=== PATIENT | male | born 1950 | race Caucasian/White ===

== ENCOUNTER 2023-10-11 13:32 | Inpatient (IN) | payer OTHER ==
[2023-10-11] MEDS ORDERED: SODIUM CHLORIDE 2,585 ML IV ONE (14:25)
[2023-10-11 14:49] LABS: BASO % 0.4 % (0-2.0); EOS % 0.6 % (0-4.5); HEMATOCRIT 43.9 % (35.4-49); HEMOGLOBIN 15.5 GM/dL (11.7-16.9); LYMPH % 3.4 % (8-40); MCH 34.1 pg (25.7-33.7); MCHC 35.3 g/dl (32.0-35.9); MEAN CELL VOLUME 96.5 fl (80-96); MEAN PLT VOLUME 8.6 fl (7.5-11.1); MONO % 14.1 % (3.8-10.2); NEUT % 81.5 % (42.8-82.8); PLATELET COUNT 265 10^3/uL (134-434); RBC 4.55 M/mm3 (4.00-5.60); WHITE BLOOD COUNT 9.7 K/mm3 (4.0-10.0)
[2023-10-11 14:52] LABS: VENOUS BASE EXCESS -5.8 mmol/L (-2-2); VENOUS O2 SATURATION 70.1 % (70-80); VENOUS PCO2 30.7 mmHg (38-52); VENOUS PH 7.382 (7.310-7.410)
[2023-10-11 14:55] LABS: INR 1.24 (0.83-1.09); PROTHROMBIN TIME (PATIENT) 14.3 SEC (9.7-13.0)
[2023-10-11 14:58] LABS: ACTIVATED PTT 30.8 SECONDS (25.2-36.5)
[2023-10-11 15:08] LABS: POTASSIUM 4.2 mmol/L (3.5-5.1)
[2023-10-11 15:10] LABS: CALCIUM 9.9 mg/dL (8.5-10.1)
[2023-10-11 15:11] LABS: ALBUMIN 3.4 g/dl (3.4-5.0); BLOOD UREA NITROGEN 73.7 mg/dL (7-18); MAGNESIUM 2.3 mg/dL (1.8-2.4)
[2023-10-11 15:14] LABS: CREATININE 1.8 mg/dL (0.55-1.3); PHOSPHOROUS 3.4 mg/dL (2.5-4.9)
[2023-10-11 15:15] LABS: BILIRUBIN,TOTAL 0.9 mg/dL (0.2-1)
[2023-10-11 15:29] LABS: LACTIC ACID 2.2 mmol/L (0.4-2.0)
[2023-10-11 17:21] LABS: URINE APPEARANCE CLEAR; URINE BILIRUBIN NEGATIVE (NEGATIVE); URINE COLOR YELLOW; URINE GLUCOSE (UA) 2+ (NEGATIVE); URINE KETONE 1+ (NEGATIVE); URINE LEUK ESTERASE NEGATIVE (NEGATIVE); URINE NITRITE NEGATIVE (NEGATIVE); URINE PROTEIN NEGATIVE (NEGATIVE); URINE UROBILINOGEN 0.2 mg/dL (0.2-1.0)
[2023-10-11] MEDS: LACTATED RINGERS SOLUTION 1,000 ML/1,000 ML INFUS.BAG IV SCH (18:11)
[2023-10-11] MEDS ORDERED: FAMOTIDINE 20 MG/50 ML IVPB 20 MG/50 ML MG IVPB ONE (21:59)
[2023-10-11] MEDS ORDERED: MAG HYDROX/AL HYDROX/SIMETH 30 ML UNIT-DOSE CUP PO ONE (21:59)
[2023-10-11] MEDS ORDERED: MAG HYDROX/AL HYDROX/SIMETH 30 ML UNIT-DOSE CUP ONE (22:17)
[2023-10-11] MEDS ORDERED: CARVEDILOL 12.5 MG TABLET (FP) ONE (22:50)
[2023-10-11] MEDS ORDERED: RAMIPRIL 5 MG CAPSULE ONE (22:51)
[2023-10-11] MEDS ORDERED: HEPARIN NA (PORCINE) 5,000 UNITS/ML 1ML VIAL ONE (22:51)
[2023-10-11] MEDS: HEPARIN NA (PORCINE) 5,000 UNITS/ML 1ML VIAL SQ SCH (22:59)
[2023-10-11] MEDS: CARVEDILOL 12.5 MG TABLET (FP) PO SCH (22:59)
[2023-10-11] MEDS: RAMIPRIL 5 MG CAPSULE PO SCH (22:59)
[2023-10-11] MEDS: INSULIN ASPART SLIDING SCALE (NOVOLOG) 1 VIAL SQ SCH (23:00)
[2023-10-12] MEDS: INSULIN ASPART SLIDING SCALE (NOVOLOG) 1 VIAL SQ SCH ×4 (06:44→21:42)
[2023-10-12 07:08] LABS: BASO % 0.5 % (0-2.0); EOS % 1.2 % (0-4.5); HEMATOCRIT 38.2 % (35.4-49); HEMOGLOBIN 13.6 GM/dL (11.7-16.9); LYMPH % 3.7 % (8-40); MCH 34.4 pg (25.7-33.7); MCHC 35.5 g/dl (32.0-35.9); MEAN CELL VOLUME 96.8 fl (80-96); MEAN PLT VOLUME 8.1 fl (7.5-11.1); MONO % 13.2 % (3.8-10.2); NEUT % 81.4 % (42.8-82.8); PLATELET COUNT 181 10^3/uL (134-434); RBC 3.95 M/mm3 (4.00-5.60); RDW 13.2 % (11.9-15.9)
[2023-10-12 07:22] LABS: POTASSIUM 3.9 mmol/L (3.5-5.1)
[2023-10-12 07:28] LABS: CALCIUM 8.7 mg/dL (8.5-10.1)
[2023-10-12 07:31] LABS: CREATININE 1.1 mg/dL (0.55-1.3)
[2023-10-12 07:39] LABS: BLOOD UREA NITROGEN 44.2 mg/dL (7-18)
[2023-10-12] MEDS: HEPARIN NA (PORCINE) 5,000 UNITS/ML 1ML VIAL SQ SCH ×2 (09:47→21:42)
[2023-10-12] MEDS: FAMOTIDINE 20 MG TABLET PO SCH (09:48)
[2023-10-12] MEDS: CARVEDILOL 12.5 MG TABLET (FP) PO SCH ×2 (09:48→21:42)
[2023-10-12] MEDS: RAMIPRIL 5 MG CAPSULE PO SCH ×2 (09:48→21:42)
[2023-10-12] MEDS: LORATADINE 10 MG TABLET PO SCH (09:48)
[2023-10-12] MEDS: ATORVASTATIN CA 20 MG TABLET (FP) PO SCH (09:48)
[2023-10-12] MEDS ORDERED: CLOPIDOGREL BISULFATE 75 MG TABLET (FP) PO SCH (10:00)
[2023-10-12] MEDS ORDERED: PATIENT'S OWN MEDICATION (NON-FORMULARY) (Tadalafil [Tadalafil] 5 MG Tablet) PO SCH (10:00)
[2023-10-12] MEDS ORDERED: ASPIRIN COATED 81 MG TABLET.EC PO SCH (10:00)
[2023-10-12] MEDS: SOLIFENACIN SUCCINATE 5 MG TAB PO SCH (11:22)
[2023-10-12] MEDS: LACTATED RINGERS SOLUTION 1,000 ML/1,000 ML INFUS.BAG IV SCH ×2 (14:05→18:13)
[2023-10-12] MEDS ORDERED: METOPROLOL TARTRATE 5 MG/5 ML VIAL IVPUSH PRN (17:03)
[2023-10-12] MEDS ORDERED: LACTATED RINGERS SOLUTION 1000 ML INFUS.BAG IV ONE (17:04)
[2023-10-12] MEDS ORDERED: METOPROLOL TARTRATE 5 MG/5 ML VIAL IVPUSH ONE ×2 (17:30→21:14)
[2023-10-12] MEDS ORDERED: LIDOCAINE VISCOUS 2% ORAL/TOP 15 ML UNIT-DOSE CUP MM PRN (17:38)
[2023-10-12] MEDS ORDERED: AMINO ACIDS 4.25%/D5W 1,000 ML IV SCH (18:00)
[2023-10-12] MEDS: AMINO ACIDS 4.25%/D5W 1,000 ML IV SCH (18:44)
[2023-10-12] MEDS: MAG HYDROX/ALH/SMC/DPHA/LIDO 240 ML MOUTHWASH MM SCH (20:30)
[2023-10-12] MEDS ORDERED: INSULIN (NOVOLOG) ASPART 100 UNITS/ML 10ML VIAL ONE (21:26)
[2023-10-13] MEDS: MAG HYDROX/ALH/SMC/DPHA/LIDO 240 ML MOUTHWASH MM SCH ×4 (00:32→17:59)
[2023-10-13] MEDS: INSULIN ASPART SLIDING SCALE (NOVOLOG) 1 VIAL SQ SCH ×4 (06:37→22:13)
[2023-10-13] MEDS: AMINO ACIDS 4.25%/D5W 1,000 ML IV SCH ×2 (06:52→18:52)
[2023-10-13 07:21] LABS: HEMATOCRIT 35.1 % (35.4-49); HEMOGLOBIN 12.3 GM/dL (11.7-16.9); MCH 33.9 pg (25.7-33.7); MCHC 35.1 g/dl (32.0-35.9); MEAN CELL VOLUME 96.7 fl (80-96); MEAN PLT VOLUME 8.1 fl (7.5-11.1); PLATELET COUNT 153 10^3/uL (134-434); RBC 3.63 M/mm3 (4.00-5.60); RDW 13.1 % (11.9-15.9)
[2023-10-13 08:42] LABS: POTASSIUM 3.4 mmol/L (3.5-5.1)
[2023-10-13 08:44] LABS: MAGNESIUM 1.3 mg/dL (1.8-2.4)
[2023-10-13 08:45] LABS: CALCIUM 8.6 mg/dL (8.5-10.1)
[2023-10-13 08:48] LABS: PHOSPHOROUS 1.8 mg/dL (2.5-4.9)
[2023-10-13 08:59] LABS: CREATININE 1.1 mg/dL (0.55-1.3)
[2023-10-13 09:03] LABS: BLOOD UREA NITROGEN 28.2 mg/dL (7-18)
[2023-10-13] MEDS: LORATADINE 10 MG TABLET PO SCH (09:49)
[2023-10-13] MEDS: SOLIFENACIN SUCCINATE 5 MG TAB PO SCH (09:49)
[2023-10-13] MEDS: ATORVASTATIN CA 20 MG TABLET (FP) PO SCH (09:49)
[2023-10-13] MEDS: FAMOTIDINE 20 MG TABLET PO SCH (09:49)
[2023-10-13] MEDS: CARVEDILOL 12.5 MG TABLET (FP) PO SCH ×2 (09:49→21:41)
[2023-10-13] MEDS: RAMIPRIL 5 MG CAPSULE PO SCH ×2 (09:49→21:43)
[2023-10-13] MEDS: HEPARIN NA (PORCINE) 5,000 UNITS/ML 1ML VIAL SQ SCH ×2 (09:50→21:39)
[2023-10-13] MEDS ORDERED: CARVEDILOL 12.5 MG TABLET (FP) PO ONE (11:30)
[2023-10-13] MEDS ORDERED: POTASSIUM CHLORIDE TABS 20 MEQ TABLET.ER (FP) PO ONE (15:45)
[2023-10-13] MEDS ORDERED: ACETAMINOPHEN 325 MG TABLET (FP) PO ONE (20:33)
[2023-10-14] MEDS: MAG HYDROX/ALH/SMC/DPHA/LIDO 240 ML MOUTHWASH MM SCH ×4 (00:32→17:57)
[2023-10-14] MEDS: AMINO ACIDS 4.25%/D5W 1,000 ML IV SCH ×2 (05:47→18:00)
[2023-10-14] MEDS: INSULIN ASPART SLIDING SCALE (NOVOLOG) 1 VIAL SQ SCH ×4 (06:57→21:38)
[2023-10-14 07:09] LABS: HEMATOCRIT 36.4 % (35.4-49); HEMOGLOBIN 12.6 GM/dL (11.7-16.9); MCH 33.6 pg (25.7-33.7); MCHC 34.7 g/dl (32.0-35.9); MEAN CELL VOLUME 96.8 fl (80-96); MEAN PLT VOLUME 8.5 fl (7.5-11.1); PLATELET COUNT 159 10^3/uL (134-434); RBC 3.76 M/mm3 (4.00-5.60); RDW 12.9 % (11.9-15.9); WHITE BLOOD COUNT 5.7 K/mm3 (4.0-10.0)
[2023-10-14 07:32] LABS: POTASSIUM 3.5 mmol/L (3.5-5.1)
[2023-10-14 07:36] LABS: CALCIUM 8.1 mg/dL (8.5-10.1)
[2023-10-14 07:37] LABS: BLOOD UREA NITROGEN 28.2 mg/dL (7-18); MAGNESIUM 1.5 mg/dL (1.8-2.4)
[2023-10-14 07:39] LABS: CREATININE 1.2 mg/dL (0.55-1.3)
[2023-10-14 07:40] LABS: PHOSPHOROUS 1.7 mg/dL (2.5-4.9)
[2023-10-14 07:41] LABS: BILIRUBIN,TOTAL 0.7 mg/dL (0.2-1); TOT PROT 5.6 g/dl (6.4-8.2)
[2023-10-14 07:42] LABS: ALBUMIN 2.6 g/dl (3.4-5.0)
[2023-10-14 08:20] LABS: ANISOCYTOSIS 2+; MACROCYTOSIS 0
[2023-10-14] MEDS ORDERED: MAGNESIUM 2GM/50ML STERILE WATER IVPB IVPB ONE (09:37)
[2023-10-14] MEDS: SOLIFENACIN SUCCINATE 5 MG TAB PO SCH (09:42)
[2023-10-14] MEDS: HEPARIN NA (PORCINE) 5,000 UNITS/ML 1ML VIAL SQ SCH ×2 (09:42→21:38)
[2023-10-14] MEDS: RAMIPRIL 5 MG CAPSULE PO SCH ×2 (09:42→21:37)
[2023-10-14] MEDS: ATORVASTATIN CA 20 MG TABLET (FP) PO SCH ×3 (09:42→21:37)
[2023-10-14] MEDS: FAMOTIDINE 20 MG TABLET PO SCH (09:42)
[2023-10-14] MEDS: LORATADINE 10 MG TABLET PO SCH (09:42)
[2023-10-14] MEDS: CARVEDILOL 12.5 MG TABLET (FP) PO SCH ×2 (09:42→21:37)
[2023-10-14] MEDS ORDERED: NAPH,MB-DB/K PH,MBDB POWDER PACKET PO SCH (09:45)
[2023-10-14] MEDS ORDERED: INSULIN (NOVOLOG) ASPART 100 UNITS/ML 10ML VIAL ONE (11:44)
[2023-10-14] MEDS ORDERED: MAGNESIUM SULF 50% (8.12 MEQ/2 ML-1 GM VIAL) IVPB ONE ×2 (12:15→15:00)
[2023-10-14] MEDS ORDERED: POTASSIUM PHOSPHATE 30 MM in SODIUM CHLORIDE 500 ML IVPB ONE (13:15)
[2023-10-14] MEDS: KCL 10 MEQ IVPB 10 MEQ/100 ML INFUS.BAG IVPB SCH ×3 (15:01→17:15)
[2023-10-14] MEDS ORDERED: morphine SULFATE 10 MG/5 ML UNIT-DOSE CUP PO PRN (18:29)
[2023-10-14] MEDS: LYTES/YERBA SANTA 240 ML BOTTLE MM SCH (21:41)
[2023-10-15] MEDS: MAG HYDROX/ALH/SMC/DPHA/LIDO 240 ML MOUTHWASH MM SCH ×4 (03:01→17:24)
[2023-10-15] MEDS: AMINO ACIDS 4.25%/D5W 1,000 ML IV SCH ×2 (03:30→17:46)
[2023-10-15] MEDS: INSULIN ASPART SLIDING SCALE (NOVOLOG) 1 VIAL SQ SCH ×4 (06:48→22:22)
[2023-10-15] MEDS: LYTES/YERBA SANTA 240 ML BOTTLE MM SCH ×3 (06:48→17:28)
[2023-10-15 08:19] LABS: HEMATOCRIT 30.1 % (35.4-49); HEMOGLOBIN 10.7 GM/dL (11.7-16.9); MCHC 35.4 g/dl (32.0-35.9); MEAN CELL VOLUME 95.9 fl (80-96); MEAN PLT VOLUME 8.5 fl (7.5-11.1); PLATELET COUNT 144 10^3/uL (134-434); RBC 3.14 M/mm3 (4.00-5.60); RDW 13.4 % (11.9-15.9); WHITE BLOOD COUNT 4.2 K/mm3 (4.0-10.0)
[2023-10-15 08:44] LABS: POTASSIUM 3.8 mmol/L (3.5-5.1)
[2023-10-15 08:46] LABS: CALCIUM 7.6 mg/dL (8.5-10.1)
[2023-10-15 08:48] LABS: ALBUMIN 2.4 g/dl (3.4-5.0); BLOOD UREA NITROGEN 26.1 mg/dL (7-18)
[2023-10-15 08:50] LABS: MAGNESIUM 1.9 mg/dL (1.8-2.4)
[2023-10-15 08:52] LABS: BILIRUBIN,TOTAL 0.4 mg/dL (0.2-1)
[2023-10-15 09:04] LABS: TOT PROT 5.2 g/dl (6.4-8.2)
[2023-10-15] MEDS: CARVEDILOL 12.5 MG TABLET (FP) PO SCH ×2 (10:28→21:53)
[2023-10-15] MEDS: FAMOTIDINE 20 MG TABLET PO SCH (10:28)
[2023-10-15] MEDS: LORATADINE 10 MG TABLET PO SCH (10:28)
[2023-10-15] MEDS: HEPARIN NA (PORCINE) 5,000 UNITS/ML 1ML VIAL SQ SCH ×2 (10:28→21:53)
[2023-10-15] MEDS: SOLIFENACIN SUCCINATE 5 MG TAB PO SCH (10:28)
[2023-10-15] MEDS: RAMIPRIL 5 MG CAPSULE PO SCH ×2 (10:28→21:53)
[2023-10-15] MEDS: NAPH,MB-DB/K PH,MBDB POWDER PACKET PO SCH ×2 (17:24→21:54)
[2023-10-15] MEDS: ATORVASTATIN CA 20 MG TABLET (FP) PO SCH (21:53)
[2023-10-16] MEDS: MAG HYDROX/ALH/SMC/DPHA/LIDO 240 ML MOUTHWASH MM SCH ×5 (00:17→17:25)
[2023-10-16] MEDS: LYTES/YERBA SANTA 240 ML BOTTLE MM SCH ×3 (06:45→17:26)
[2023-10-16] MEDS: INSULIN ASPART SLIDING SCALE (NOVOLOG) 1 VIAL SQ SCH ×4 (06:46→22:06)
[2023-10-16] MEDS: AMINO ACIDS 4.25%/D5W 1,000 ML IV SCH ×3 (07:04→20:34)
[2023-10-16 07:17] LABS: HEMATOCRIT 31.9 % (35.4-49); HEMOGLOBIN 11.2 GM/dL (11.7-16.9); MCH 33.9 pg (25.7-33.7); MCHC 35.1 g/dl (32.0-35.9); MEAN CELL VOLUME 96.5 fl (80-96); MEAN PLT VOLUME 8.4 fl (7.5-11.1); PLATELET COUNT 142 10^3/uL (134-434); RBC 3.31 M/mm3 (4.00-5.60); RDW 13.1 % (11.9-15.9)
[2023-10-16] MEDS ORDERED: INSULIN (NOVOLOG) ASPART 100 UNITS/ML 10ML VIAL ONE ×2 (07:23→22:05)
[2023-10-16 07:46] LABS: ALBUMIN 2.6 g/dl (3.4-5.0); BLOOD UREA NITROGEN 22.7 mg/dL (7-18); CALCIUM 8.1 mg/dL (8.5-10.1); MAGNESIUM 1.7 mg/dL (1.8-2.4)
[2023-10-16 07:48] LABS: BILIRUBIN,TOTAL 0.5 mg/dL (0.2-1); CREATININE 0.9 mg/dL (0.55-1.3); PHOSPHOROUS 1.7 mg/dL (2.5-4.9)
[2023-10-16 07:51] LABS: TOT PROT 5.6 g/dl (6.4-8.2)
[2023-10-16] MEDS: SOLIFENACIN SUCCINATE 5 MG TAB PO SCH (10:38)
[2023-10-16] MEDS: FAMOTIDINE 20 MG TABLET PO SCH (10:38)
[2023-10-16] MEDS: CARVEDILOL 12.5 MG TABLET (FP) PO SCH ×2 (10:38→21:55)
[2023-10-16] MEDS: LORATADINE 10 MG TABLET PO SCH (10:38)
[2023-10-16] MEDS: HEPARIN NA (PORCINE) 5,000 UNITS/ML 1ML VIAL SQ SCH ×2 (12:22→21:54)
[2023-10-16] MEDS: RAMIPRIL 5 MG CAPSULE PO SCH ×2 (13:25→21:55)
[2023-10-16] MEDS ORDERED: MAGNESIUM SULF 50% (8.12 MEQ/2 ML-1 GM VIAL) IVPB ONE (13:47)
[2023-10-16] MEDS: NAPH,MB-DB/K PH,MBDB POWDER PACKET PO SCH ×3 (14:54→20:34)
[2023-10-16] MEDS ORDERED: SODIUM CHLORIDE NASAL SPRAY 44 ML BOTTLE NS PRN (16:29)
[2023-10-16] MEDS: risperiDONE 0.25 MG TABLET PO SCH ×2 (17:32→18:22)
[2023-10-16] MEDS: SUCRALFATE 1 GM/10 ML UNIT DOSE CUPS PO SCH ×3 (17:32→21:55)
[2023-10-16] MEDS: ATORVASTATIN CA 20 MG TABLET (FP) PO SCH (21:54)
[2023-10-17] MEDS: MAG HYDROX/ALH/SMC/DPHA/LIDO 240 ML MOUTHWASH MM SCH ×4 (00:23→18:22)
[2023-10-17] MEDS: SUCRALFATE 1 GM/10 ML UNIT DOSE CUPS PO SCH ×4 (06:13→21:41)
[2023-10-17] MEDS: LYTES/YERBA SANTA 240 ML BOTTLE MM SCH ×3 (06:21→18:22)
[2023-10-17] MEDS: INSULIN ASPART SLIDING SCALE (NOVOLOG) 1 VIAL SQ SCH ×4 (06:23→21:45)
[2023-10-17] MEDS ORDERED: INSULIN (NOVOLOG) ASPART 100 UNITS/ML 10ML VIAL ONE ×2 (06:23→21:26)
[2023-10-17 06:52] LABS: HEMATOCRIT 31.1 % (35.4-49); HEMOGLOBIN 11.2 GM/dL (11.7-16.9); MCH 34.4 pg (25.7-33.7); MEAN CELL VOLUME 95.4 fl (80-96); MEAN PLT VOLUME 8.2 fl (7.5-11.1); PLATELET COUNT 155 10^3/uL (134-434); RBC 3.26 M/mm3 (4.00-5.60); RDW 13.3 % (11.9-15.9); WHITE BLOOD COUNT 4.5 K/mm3 (4.0-10.0)
[2023-10-17 07:09] LABS: POTASSIUM 4.2 mmol/L (3.5-5.1)
[2023-10-17 07:12] LABS: ALBUMIN 2.6 g/dl (3.4-5.0); CALCIUM 7.9 mg/dL (8.5-10.1); MAGNESIUM 1.8 mg/dL (1.8-2.4)
[2023-10-17 07:15] LABS: CREATININE 0.9 mg/dL (0.55-1.3); PHOSPHOROUS 1.7 mg/dL (2.5-4.9)
[2023-10-17 07:17] LABS: BILIRUBIN,TOTAL 0.5 mg/dL (0.2-1); TOT PROT 5.6 g/dl (6.4-8.2)
[2023-10-17] MEDS: AMINO ACIDS/PROTEIN HYDROLYS 30 ML LIQUID.PKT PO SCH (09:04)
[2023-10-17] MEDS: AMINO ACIDS 4.25%/D5W 1,000 ML IV SCH ×2 (11:36→18:33)
[2023-10-17] MEDS: HEPARIN NA (PORCINE) 5,000 UNITS/ML 1ML VIAL SQ SCH ×2 (11:39→21:42)
[2023-10-17] MEDS: CARVEDILOL 12.5 MG TABLET (FP) PO SCH ×2 (11:40→21:40)
[2023-10-17] MEDS: FAMOTIDINE 20 MG TABLET PO SCH (11:40)
[2023-10-17] MEDS: RAMIPRIL 5 MG CAPSULE PO SCH ×2 (11:41→21:40)
[2023-10-17] MEDS: risperiDONE 0.25 MG TABLET PO SCH (11:42)
[2023-10-17] MEDS: SOLIFENACIN SUCCINATE 5 MG TAB PO SCH (11:42)
[2023-10-17] MEDS ORDERED: MAGNESIUM SULF 50% (8.12 MEQ/2 ML-1 GM VIAL) IVPB ONE (17:47)
[2023-10-17] MEDS: NAPH,MB-DB/K PH,MBDB POWDER PACKET PO SCH ×3 (18:21→21:41)
[2023-10-17] MEDS ORDERED: IBUPROFEN 600 MG TABLET (FP) PO PRN (18:35)
[2023-10-17] MEDS: ATORVASTATIN CA 20 MG TABLET (FP) PO SCH (21:40)
[2023-10-18] MEDS: MAG HYDROX/ALH/SMC/DPHA/LIDO 240 ML MOUTHWASH MM SCH ×5 (00:29→23:51)
[2023-10-18] MEDS: AMINO ACIDS 4.25%/D5W 1,000 ML IV SCH ×2 (03:53→17:39)
[2023-10-18] MEDS: SUCRALFATE 1 GM/10 ML UNIT DOSE CUPS PO SCH ×4 (06:27→21:30)
[2023-10-18] MEDS: LYTES/YERBA SANTA 240 ML BOTTLE MM SCH ×3 (06:32→17:39)
[2023-10-18] MEDS ORDERED: INSULIN (NOVOLOG) ASPART 100 UNITS/ML 10ML VIAL ONE (06:40)
[2023-10-18] MEDS: INSULIN ASPART SLIDING SCALE (NOVOLOG) 1 VIAL SQ SCH ×4 (06:42→21:38)
[2023-10-18] MEDS ORDERED: BENZOCAINE/MENTHOL 1 EACH LOZENGE MM PRN (06:45)
[2023-10-18 08:44] LABS: POTASSIUM 3.8 mmol/L (3.5-5.1)
[2023-10-18 08:47] LABS: HEMATOCRIT 30.5 % (35.4-49); MCH 34.6 pg (25.7-33.7); MCHC 35.9 g/dl (32.0-35.9); MEAN CELL VOLUME 96.1 fl (80-96); MEAN PLT VOLUME 8.3 fl (7.5-11.1); PLATELET COUNT 163 10^3/uL (134-434); RBC 3.17 M/mm3 (4.00-5.60); WHITE BLOOD COUNT 4.7 K/mm3 (4.0-10.0)
[2023-10-18 08:53] LABS: ALBUMIN 2.5 g/dl (3.4-5.0); BILIRUBIN,TOTAL 0.6 mg/dL (0.2-1); BLOOD UREA NITROGEN 26.1 mg/dL (7-18); TOT PROT 5.7 g/dl (6.4-8.2)
[2023-10-18 08:55] LABS: CALCIUM 7.9 mg/dL (8.5-10.1); MAGNESIUM 1.9 mg/dL (1.8-2.4)
[2023-10-18] MEDS: AMINO ACIDS/PROTEIN HYDROLYS 30 ML LIQUID.PKT PO SCH (09:01)
[2023-10-18] MEDS: SOLIFENACIN SUCCINATE 5 MG TAB PO SCH (09:01)
[2023-10-18] MEDS: RAMIPRIL 5 MG CAPSULE PO SCH ×2 (09:01→21:29)
[2023-10-18] MEDS: HEPARIN NA (PORCINE) 5,000 UNITS/ML 1ML VIAL SQ SCH ×2 (09:01→21:28)
[2023-10-18] MEDS: FAMOTIDINE 20 MG TABLET PO SCH (09:01)
[2023-10-18] MEDS: CARVEDILOL 12.5 MG TABLET (FP) PO SCH ×2 (09:02→21:29)
[2023-10-18] MEDS: risperiDONE 0.25 MG TABLET PO SCH (09:02)
[2023-10-18] MEDS: IBUPROFEN 800 MG/8 ML IJ IVPB PRN ×2 (13:57→21:30)
[2023-10-18] MEDS: ATORVASTATIN CA 20 MG TABLET (FP) PO SCH (21:28)
[2023-10-19] MEDS: MAG HYDROX/ALH/SMC/DPHA/LIDO 240 ML MOUTHWASH MM SCH ×3 (05:54→17:15)
[2023-10-19] MEDS: IBUPROFEN 800 MG/8 ML IJ IVPB PRN ×2 (05:55→11:43)
[2023-10-19] MEDS: LYTES/YERBA SANTA 240 ML BOTTLE MM SCH ×3 (06:05→17:02)
[2023-10-19] MEDS: INSULIN ASPART SLIDING SCALE (NOVOLOG) 1 VIAL SQ SCH ×4 (06:05→21:47)
[2023-10-19] MEDS: SUCRALFATE 1 GM/10 ML UNIT DOSE CUPS PO SCH ×5 (06:05→21:48)
[2023-10-19] MEDS: AMINO ACIDS/PROTEIN HYDROLYS 30 ML LIQUID.PKT PO SCH (08:59)
[2023-10-19] MEDS: RAMIPRIL 5 MG CAPSULE PO SCH ×2 (09:11→21:37)
[2023-10-19] MEDS: risperiDONE 0.25 MG TABLET PO SCH (09:11)
[2023-10-19] MEDS: CARVEDILOL 12.5 MG TABLET (FP) PO SCH ×2 (09:12→21:38)
[2023-10-19] MEDS: HEPARIN NA (PORCINE) 5,000 UNITS/ML 1ML VIAL SQ SCH ×2 (09:12→21:38)
[2023-10-19] MEDS: SOLIFENACIN SUCCINATE 5 MG TAB PO SCH (09:12)
[2023-10-19] MEDS: FAMOTIDINE 20 MG TABLET PO SCH (09:12)
[2023-10-19] MEDS: AMINO ACIDS 4.25%/D5W 1,000 ML IV SCH (17:31)
[2023-10-19] MEDS: ATORVASTATIN CA 20 MG TABLET (FP) PO SCH (21:38)
[2023-10-20] MEDS: MAG HYDROX/ALH/SMC/DPHA/LIDO 240 ML MOUTHWASH MM SCH ×5 (00:10→18:58)
[2023-10-20] MEDS: LYTES/YERBA SANTA 240 ML BOTTLE MM SCH ×3 (06:58→18:58)
[2023-10-20] MEDS: SUCRALFATE 1 GM/10 ML UNIT DOSE CUPS PO SCH ×4 (06:58→21:19)
[2023-10-20] MEDS: INSULIN ASPART SLIDING SCALE (NOVOLOG) 1 VIAL SQ SCH ×4 (06:58→21:18)
[2023-10-20] MEDS: AMINO ACIDS 4.25%/D5W 1,000 ML IV SCH ×2 (08:07→19:27)
[2023-10-20] MEDS: AMINO ACIDS/PROTEIN HYDROLYS 30 ML LIQUID.PKT PO SCH ×2 (08:07→08:22)
[2023-10-20 08:34] LABS: BASO % 0.3 % (0-2.0); EOS % 4.6 % (0-4.5); LYMPH % 6.4 % (8-40); MCH 33.8 pg (25.7-33.7); MCHC 35.5 g/dl (32.0-35.9); MEAN CELL VOLUME 95.2 fl (80-96); MEAN PLT VOLUME 8.3 fl (7.5-11.1); MONO % 13.6 % (3.8-10.2); NEUT % 75.1 % (42.8-82.8); PLATELET COUNT 214 10^3/uL (134-434); RBC 3.26 M/mm3 (4.00-5.60); WHITE BLOOD COUNT 3.3 K/mm3 (4.0-10.0)
[2023-10-20 09:01] LABS: POTASSIUM 3.7 mmol/L (3.5-5.1)
[2023-10-20 09:08] LABS: ALBUMIN 2.5 g/dl (3.4-5.0)
[2023-10-20 09:09] LABS: BLOOD UREA NITROGEN 19.8 mg/dL (7-18); PHOSPHOROUS 1.7 mg/dL (2.5-4.9)
[2023-10-20 09:10] LABS: BILIRUBIN,TOTAL 0.5 mg/dL (0.2-1); CALCIUM 8.3 mg/dL (8.5-10.1); TOT PROT 5.7 g/dl (6.4-8.2)
[2023-10-20 09:11] LABS: CREATININE 0.9 mg/dL (0.55-1.3); MAGNESIUM 1.6 mg/dL (1.8-2.4)
[2023-10-20] MEDS: RAMIPRIL 5 MG CAPSULE PO SCH ×2 (09:36→21:11)
[2023-10-20] MEDS: SOLIFENACIN SUCCINATE 5 MG TAB PO SCH (09:36)
[2023-10-20] MEDS: FAMOTIDINE 20 MG TABLET PO SCH (09:36)
[2023-10-20] MEDS: HEPARIN NA (PORCINE) 5,000 UNITS/ML 1ML VIAL SQ SCH (09:36)
[2023-10-20] MEDS: CARVEDILOL 12.5 MG TABLET (FP) PO SCH ×2 (09:36→21:11)
[2023-10-20] MEDS: risperiDONE 0.25 MG TABLET PO SCH (09:37)
[2023-10-20] MEDS ORDERED: IBUPROFEN 800 MG/8 ML IJ IVPB PRN (11:20)
[2023-10-20] MEDS: NYSTATIN 500,000 UNITS/5 ML SUSPENSION PO SCH (19:28)
[2023-10-20] MEDS: ATORVASTATIN CA 20 MG TABLET (FP) PO SCH (21:11)
[2023-10-20] MEDS ORDERED: INSULIN (NOVOLOG) ASPART 100 UNITS/ML 10ML VIAL ONE (21:17)
[2023-10-21] MEDS: NYSTATIN 500,000 UNITS/5 ML SUSPENSION PO SCH ×4 (00:31→18:52)
[2023-10-21] MEDS: MAG HYDROX/ALH/SMC/DPHA/LIDO 240 ML MOUTHWASH MM SCH ×4 (00:31→18:52)
[2023-10-21] MEDS: SUCRALFATE 1 GM/10 ML UNIT DOSE CUPS PO SCH ×4 (06:06→22:13)
[2023-10-21] MEDS: LYTES/YERBA SANTA 240 ML BOTTLE MM SCH ×3 (06:06→18:51)
[2023-10-21] MEDS: INSULIN ASPART SLIDING SCALE (NOVOLOG) 1 VIAL SQ SCH ×4 (07:05→22:34)
[2023-10-21] MEDS: AMINO ACIDS/PROTEIN HYDROLYS 30 ML LIQUID.PKT PO SCH (09:15)
[2023-10-21] MEDS: CARVEDILOL 12.5 MG TABLET (FP) PO SCH ×2 (09:16→22:13)
[2023-10-21] MEDS: RAMIPRIL 5 MG CAPSULE PO SCH ×2 (09:16→22:33)
[2023-10-21] MEDS: FAMOTIDINE 20 MG TABLET PO SCH (09:16)
[2023-10-21] MEDS: AMINO ACIDS 4.25%/D5W 1,000 ML IV SCH ×3 (09:17→22:35)
[2023-10-21] MEDS: SOLIFENACIN SUCCINATE 5 MG TAB PO SCH (09:17)
[2023-10-21] MEDS: risperiDONE 0.25 MG TABLET PO SCH ×2 (09:17→10:46)
[2023-10-21] MEDS ORDERED: MAGNESIUM SULF 50% (8.12 MEQ/2 ML-1 GM VIAL) IVPB ONE (15:54)
[2023-10-21] MEDS ORDERED: MAGNESIUM 2GM/50ML STERILE WATER IVPB IVPB ONE (19:30)
[2023-10-21] MEDS: POTASSIUM PHOSPHATE 15 MM in DEXTROSE 5%-WATER - 250 ML IVPB ONE (20:55)
[2023-10-21] MEDS: ATORVASTATIN CA 20 MG TABLET (FP) PO SCH (22:13)
[2023-10-21] MEDS: INSULIN (LEVEMIR) 100 UNITS/ML UNITS SQ SCH (22:34)
[2023-10-22] MEDS: MAG HYDROX/ALH/SMC/DPHA/LIDO 240 ML MOUTHWASH MM SCH ×4 (01:00→18:39)
[2023-10-22] MEDS: NYSTATIN 500,000 UNITS/5 ML SUSPENSION PO SCH ×4 (01:00→18:27)
[2023-10-22] MEDS ORDERED: MAG HYDROX/AL HYDROX/SIMETH 30 ML UNIT-DOSE CUP PO ONE (04:01)
[2023-10-22] MEDS ORDERED: LIDOCAINE VISCOUS 2% ORAL/TOP 15 ML UNIT-DOSE CUP MM PRN (04:36)
[2023-10-22] MEDS: SUCRALFATE 1 GM/10 ML UNIT DOSE CUPS PO SCH ×4 (06:33→21:20)
[2023-10-22] MEDS: INSULIN ASPART SLIDING SCALE (NOVOLOG) 1 VIAL SQ SCH ×3 (06:38→21:13)
[2023-10-22] MEDS: LYTES/YERBA SANTA 240 ML BOTTLE MM SCH ×3 (06:44→18:26)
[2023-10-22] MEDS ORDERED: INSULIN (NOVOLOG) ASPART 100 UNITS/ML 10ML VIAL SQ ONE (07:01)
[2023-10-22] MEDS: HEPARIN NA (PORCINE) 5,000 UNITS/ML 1ML VIAL SQ SCH ×2 (10:55→21:20)
[2023-10-22] MEDS: CARVEDILOL 12.5 MG TABLET (FP) PO SCH ×3 (10:57→21:26)
[2023-10-22] MEDS: SOLIFENACIN SUCCINATE 5 MG TAB PO SCH (10:57)
[2023-10-22] MEDS: AMINO ACIDS/PROTEIN HYDROLYS 30 ML LIQUID.PKT PO SCH (10:57)
[2023-10-22] MEDS: FAMOTIDINE 20 MG TABLET PO SCH (10:57)
[2023-10-22] MEDS: RAMIPRIL 5 MG CAPSULE PO SCH ×3 (10:58→21:27)
[2023-10-22] MEDS: risperiDONE 0.25 MG TABLET PO SCH (10:58)
[2023-10-22 11:05] LABS: CALCIUM 8.9 mg/dL (8.5-10.1)
[2023-10-22 11:06] LABS: ALBUMIN 2.6 g/dl (3.4-5.0); BLOOD UREA NITROGEN 18.7 mg/dL (7-18)
[2023-10-22 11:09] LABS: CREATININE 0.9 mg/dL (0.55-1.3)
[2023-10-22 11:10] LABS: BILIRUBIN,TOTAL 0.6 mg/dL (0.2-1); TOT PROT 6.2 g/dl (6.4-8.2)
[2023-10-22] MEDS: AMINO ACIDS 4.25%/D5W 1,000 ML IV SCH ×2 (11:25→18:27)
[2023-10-22] MEDS ORDERED: SODIUM CHLORIDE 1,000 ML IV SCH (12:00)
[2023-10-22] MEDS: POTASSIUM PHOSPHATE 15 MM in DEXTROSE 5%-WATER - 250 ML IVPB ONE (13:20)
[2023-10-22] MEDS ORDERED: MIDAZOLAM HCL 2 MG/2 ML SINGLE DOSE VIAL ONE (15:37)
[2023-10-22] MEDS: MIDAZOLAM HCL 2 MG/2 ML SINGLE DOSE VIAL IVPUSH SCH ×2 (15:37→16:19)
[2023-10-22] MEDS: FENTANYL CITRATE/PF 50 MCG/ML VIAL IVPUSH SCH ×2 (15:37→16:20)
[2023-10-22] MEDS ORDERED: FENTANYL CITRATE/PF 50 MCG/ML VIAL ONE ×2 (15:37→16:19)
[2023-10-22] MEDS ORDERED: GLUCAGON 1 MG KIT ONE (15:43)
[2023-10-22] MEDS ORDERED: GLUCAGON 1 MG KIT IVPUSH ONE (15:45)
[2023-10-22] MEDS ORDERED: ceFAZolin SODIUM 1 GM VIAL ONE (15:57)
[2023-10-22] MEDS ORDERED: CEFAZOLIN SODIUM 2 GM VIAL IVPB ONE (16:00)
[2023-10-22] MEDS: ATORVASTATIN CA 20 MG TABLET (FP) PO SCH ×2 (21:20→21:28)
[2023-10-22] MEDS: INSULIN (LEVEMIR) 100 UNITS/ML UNITS SQ SCH (21:21)
[2023-10-23] MEDS: MAG HYDROX/ALH/SMC/DPHA/LIDO 240 ML MOUTHWASH MM SCH ×4 (00:16→18:12)
[2023-10-23] MEDS: NYSTATIN 500,000 UNITS/5 ML SUSPENSION PO SCH ×4 (00:16→18:11)
[2023-10-23] MEDS: SUCRALFATE 1 GM/10 ML UNIT DOSE CUPS PO SCH ×4 (06:07→21:25)
[2023-10-23] MEDS: LYTES/YERBA SANTA 240 ML BOTTLE MM SCH ×3 (06:07→17:00)
[2023-10-23] MEDS: INSULIN ASPART SLIDING SCALE (NOVOLOG) 1 VIAL SQ SCH ×3 (06:10→21:25)
[2023-10-23] MEDS: FAMOTIDINE 20 MG TABLET PO SCH (09:20)
[2023-10-23] MEDS: CARVEDILOL 12.5 MG TABLET (FP) PO SCH ×2 (09:20→21:19)
[2023-10-23] MEDS: HEPARIN NA (PORCINE) 5,000 UNITS/ML 1ML VIAL SQ SCH (09:20)
[2023-10-23] MEDS: RAMIPRIL 5 MG CAPSULE PO SCH ×2 (09:21→22:31)
[2023-10-23] MEDS: risperiDONE 0.25 MG TABLET PO SCH (09:21)
[2023-10-23] MEDS: SOLIFENACIN SUCCINATE 5 MG TAB PO SCH (09:21)
[2023-10-23 09:50] LABS: HEMATOCRIT 31.2 % (35.4-49); HEMOGLOBIN 11.1 GM/dL (11.7-16.9); MCH 33.5 pg (25.7-33.7); MCHC 35.6 g/dl (32.0-35.9); MEAN PLT VOLUME 7.8 fl (7.5-11.1); PLATELET COUNT 274 10^3/uL (134-434); RBC 3.32 M/mm3 (4.00-5.60); RDW 13.4 % (11.9-15.9); WHITE BLOOD COUNT 4.5 K/mm3 (4.0-10.0)
[2023-10-23] MEDS: AMINO ACIDS/PROTEIN HYDROLYS 30 ML LIQUID.PKT PO SCH (10:51)
[2023-10-23] MEDS: AMINO ACIDS 4.25%/D5W 1,000 ML IV SCH (18:12)
[2023-10-23] MEDS: APIXABAN 5 MG TABLET PO SCH ×2 (20:20→22:26)
[2023-10-23] MEDS: ATORVASTATIN CA 20 MG TABLET (FP) PO SCH (21:20)
[2023-10-23] MEDS: INSULIN (LEVEMIR) 100 UNITS/ML UNITS SQ SCH (21:25)
[2023-10-24] MEDS: MAG HYDROX/ALH/SMC/DPHA/LIDO 240 ML MOUTHWASH MM SCH ×5 (05:53→12:54)
[2023-10-24] MEDS: NYSTATIN 500,000 UNITS/5 ML SUSPENSION PO SCH ×3 (05:54→11:40)
[2023-10-24] MEDS: SUCRALFATE 1 GM/10 ML UNIT DOSE CUPS PO SCH ×3 (06:02→17:12)
[2023-10-24] MEDS: LYTES/YERBA SANTA 240 ML BOTTLE MM SCH ×3 (06:02→17:13)
[2023-10-24] MEDS: AMINO ACIDS 4.25%/D5W 1,000 ML IV SCH (06:14)
[2023-10-24] MEDS: INSULIN ASPART SLIDING SCALE (NOVOLOG) 1 VIAL SQ SCH ×2 (06:24→13:56)
[2023-10-24] MEDS: AMINO ACIDS/PROTEIN HYDROLYS 30 ML LIQUID.PKT PO SCH (08:08)
[2023-10-24 08:47] LABS: HEMATOCRIT 30.1 % (35.4-49); HEMOGLOBIN 10.9 GM/dL (11.7-16.9); MCHC 36.3 g/dl (32.0-35.9); MEAN CELL VOLUME 93.8 fl (80-96); MEAN PLT VOLUME 7.9 fl (7.5-11.1); PLATELET COUNT 283 10^3/uL (134-434); RBC 3.21 M/mm3 (4.00-5.60); RDW 13.3 % (11.9-15.9); WHITE BLOOD COUNT 4.6 K/mm3 (4.0-10.0)
[2023-10-24 09:02] LABS: POTASSIUM 3.7 mmol/L (3.5-5.1)
[2023-10-24 09:09] LABS: ALBUMIN 2.4 g/dl (3.4-5.0); MAGNESIUM 1.6 mg/dL (1.8-2.4)
[2023-10-24 09:10] LABS: BLOOD UREA NITROGEN 18.3 mg/dL (7-18)
[2023-10-24 09:13] LABS: CREATININE 0.9 mg/dL (0.55-1.3); PHOSPHOROUS 1.9 mg/dL (2.5-4.9)
[2023-10-24 09:14] LABS: BILIRUBIN,TOTAL 0.6 mg/dL (0.2-1); TOT PROT 5.6 g/dl (6.4-8.2)
[2023-10-24] MEDS ORDERED: APIXABAN 5 MG TABLET PO SCH (10:00)
[2023-10-24] MEDS: CARVEDILOL 12.5 MG TABLET (FP) PO SCH (10:36)
[2023-10-24] MEDS: FAMOTIDINE 20 MG TABLET PO SCH (10:37)
[2023-10-24] MEDS: APIXABAN 5 MG TABLET PO SCH (10:37)
[2023-10-24] MEDS: RAMIPRIL 5 MG CAPSULE PO SCH (10:37)
[2023-10-24] MEDS: SOLIFENACIN SUCCINATE 5 MG TAB PO SCH (10:37)
[2023-10-24] MEDS: risperiDONE 0.25 MG TABLET PO SCH (10:38)
[2023-10-24 14:49] VITALS: BP 129/50; PULSE 74; RESP 17; TEMP 98
[2023-10-24 15:03] VITALS: BMI 23.1
[2023-10-24] MEDS ORDERED: MAGNESIUM SULF 50% (8.12 MEQ/2 ML-1 GM VIAL) IVPB ONE (17:24)
== END 2023-10-24 17:15 | disposition home or self-care (01) | DRG 146 ==
LOC: JER 13:32 → JERBED 14:27 → J4W 10-12 04:32 → J6S 10-21 21:00
PROVIDERS: ADMIT Internal Medicine; ATTEND Internal Medicine
PROC: 0DH63UZ Insertion of Feeding Device into Stomach, Percutaneous Approach (ICD-10-PCS; principal; 2023-10-22)
PROC: BD12ZZZ Fluoroscopy of Stomach (ICD-10-PCS; 2023-10-22)
DX: C02.9 Malignant neoplasm of tongue, unspecified (principal); E43 Unspecified severe protein-calorie malnutrition; N17.9 Acute kidney failure, unspecified; I48.92 Unspecified atrial flutter; E87.1 Hypo-osmolality and hyponatremia; E86.0 Dehydration; R63.4 Abnormal weight loss; I25.10 Atherosclerotic heart disease of native coronary artery without angina pectoris; E78.5 Hyperlipidemia, unspecified; I48.91 Unspecified atrial fibrillation; R13.10 Dysphagia, unspecified; E11.9 Type 2 diabetes mellitus without complications; Z68.23 Body mass index [BMI] 23.0-23.9, adult; Z95.5 Presence of coronary angioplasty implant and graft
CPT/HCPCS: 0241U-QW; 36415; 49440; 71045-TC-FY; 74018-TC-FY; 74150-TC; 74230-TC-FY; 80048; 80053; 81003; 82550; 82803; 82962; 83036; 83605; 83735; 84100; 84484; 85025; 85027; 85610; 85730; 86850; 86900; 86901; 87040; 87086; 92611-GN; 93005; 93010; 93306-TC; 99285-25; J1644

== ENCOUNTER 2023-11-25 20:48 | Inpatient (IN) | payer OTHER, MEDICARE ==
[2023-11-25] MEDS: TUBE FEED DECLOGGING SOLUTION 12,000 UNITS GT ONE (23:07)
[2023-11-26 01:12] LABS: BASO % 0.6 % (0-2.0); EOS % 7.7 % (0-4.5); HEMATOCRIT 38.1 % (35.4-49); HEMOGLOBIN 13.1 GM/dL (11.7-16.9); LYMPH % 5.4 % (8-40); MCH 33.3 pg (25.7-33.7); MCHC 34.4 g/dl (32.0-35.9); MEAN CELL VOLUME 96.5 fl (80-96); MONO % 10.3 % (3.8-10.2); PLATELET COUNT 267 10^3/uL (134-434); RBC 3.95 M/mm3 (4.00-5.60); RDW 14.3 % (11.9-15.9); WHITE BLOOD COUNT 7.5 K/mm3 (4.0-10.0)
[2023-11-26 02:32] LABS: POTASSIUM 4.2 mmol/L (3.5-5.1)
[2023-11-26 02:34] LABS: BLOOD UREA NITROGEN 37.9 mg/dL (7-18); CALCIUM 9.6 mg/dL (8.5-10.1)
[2023-11-26 02:37] LABS: CREATININE 1.1 mg/dL (0.55-1.3)
[2023-11-26 02:39] LABS: BILIRUBIN,TOTAL 0.8 mg/dL (0.2-1); TOT PROT 7.7 g/dl (6.4-8.2)
[2023-11-26 04:20] VITALS: BMI 24.4
[2023-11-26] MEDS: TUBE FEED DECLOGGING SOLUTION 12,000 UNITS GT ONE ×2 (04:24→08:54)
[2023-11-26] MEDS: SODIUM CHLORIDE 1,000 ML IV SCH (06:55)
[2023-11-26 07:16] VITALS: RESP 18
[2023-11-26 08:58] LABS: HEMATOCRIT 35.1 % (35.4-49); HEMOGLOBIN 12.2 GM/dL (11.7-16.9); MCH 33.6 pg (25.7-33.7); MCHC 34.7 g/dl (32.0-35.9); MEAN CELL VOLUME 96.8 fl (80-96); MEAN PLT VOLUME 8.8 fl (7.5-11.1); PLATELET COUNT 222 10^3/uL (134-434); RBC 3.63 M/mm3 (4.00-5.60); RDW 14.2 % (11.9-15.9); WHITE BLOOD COUNT 6.3 K/mm3 (4.0-10.0)
[2023-11-26 09:20] LABS: POTASSIUM 4.2 mmol/L (3.5-5.1)
[2023-11-26 09:23] LABS: BLOOD UREA NITROGEN 32.6 mg/dL (7-18); CALCIUM 9.3 mg/dL (8.5-10.1)
[2023-11-26 09:24] LABS: ALBUMIN 3.4 g/dl (3.4-5.0); MAGNESIUM 2.2 mg/dL (1.8-2.4)
[2023-11-26 09:26] LABS: CREATININE 0.9 mg/dL (0.55-1.3)
[2023-11-26 09:29] LABS: BILIRUBIN,TOTAL 0.8 mg/dL (0.2-1); TOT PROT 6.8 g/dl (6.4-8.2)
[2023-11-26] MEDS ORDERED: NYSTATIN 500,000 UNITS/5 ML SUSPENSION PO SCH (10:00)
[2023-11-26] MEDS: NYSTATIN 500,000 UNITS/5 ML SUSPENSION PO SCH (10:03)
[2023-11-26] MEDS ORDERED: CARVEDILOL 12.5 MG TABLET (FP) GT SCH (22:10)
[2023-11-26] MEDS ORDERED: glyBURIDE 2.5 MG TABLET GT SCH (22:10)
[2023-11-26] MEDS ORDERED: APIXABAN 5 MG TABLET GT SCH (22:10)
[2023-11-26] MEDS: APIXABAN 5 MG TABLET GT SCH (22:56)
[2023-11-26] MEDS: CARVEDILOL 12.5 MG TABLET (FP) GT SCH (22:56)
[2023-11-27] MEDS: glyBURIDE 2.5 MG TABLET GT SCH (06:55)
[2023-11-27] MEDS: CARVEDILOL 12.5 MG TABLET (FP) PO SCH (08:58)
[2023-11-27] MEDS: APIXABAN 5 MG TABLET PO SCH (09:00)
[2023-11-27] MEDS: glyBURIDE 2.5 MG TABLET PO SCH (09:00)
[2023-11-27] MEDS: RAMIPRIL 5 MG CAPSULE GT SCH (10:36)
[2023-11-27 11:41] VITALS: BP 124/68; PULSE 68; TEMP 97.6
== END 2023-11-27 15:58 | disposition home or self-care (01) | DRG 394 ==
LOC: JER 20:48 → JERBED 11-26 01:08 → J7W 11-26 03:33
PROVIDERS: ADMIT Internal Medicine; ATTEND Nurse Practitioner
PROC: 0D20XUZ Change Feeding Device in Upper Intestinal Tract, External Approach (ICD-10-PCS; principal; 2023-11-26)
DX: K94.23 Gastrostomy malfunction (principal); I48.92 Unspecified atrial flutter; I25.10 Atherosclerotic heart disease of native coronary artery without angina pectoris; I10 Essential (primary) hypertension; E78.5 Hyperlipidemia, unspecified; E11.9 Type 2 diabetes mellitus without complications; C02.9 Malignant neoplasm of tongue, unspecified; R13.10 Dysphagia, unspecified; Z79.84 Long term (current) use of oral hypoglycemic drugs; Y83.9 Surgical procedure, unspecified as the cause of abnormal reaction of the patient, or of later complication, without mention of misadventure at the time of the procedure
CPT/HCPCS: 36415; 49452; 74019-TC-FY; 80053; 83735; 84100; 85025; 85027; 99285-25

== ENCOUNTER 2024-01-16 09:40 | Emergency (ER) | payer OTHER, MEDICARE ==
[2024-01-16 09:47] VITALS: BP 131/62; PULSE 64; RESP 18; TEMP 97.9; BMI 24.4
== END 2024-01-16 11:13 | disposition home or self-care (01) ==
LOC: JER 09:40
DX: K94.23 Gastrostomy malfunction (principal)
CPT/HCPCS: 74018-TC-FY; 99283-25; G0463

== ENCOUNTER → 2024-03-29 | Day surgery (SDC) | payer OTHER, MEDICARE | END | disposition home or self-care (01) | LOC: JRADIR 09:29 | PROVIDERS: ATTEND Radiology Radiation Oncology | PROC: 0DH63UZ Insertion of Feeding Device into Stomach, Percutaneous Approach (ICD-10-PCS; principal; 2024-03-29) | DX: Z43.1 Encounter for attention to gastrostomy (principal) | CPT/HCPCS: 49452 ==